=== PATIENT | female | born 2000 | race Hispanic/Latino ===

== ENCOUNTER 2022-04-09 02:05 | Emergency (ER) | payer SELFPAY ==
[2022-04-09] MEDS ORDERED: ONDANSETRON 4 MG/2 ML VIAL ONE (02:35)
[2022-04-09] MEDS ORDERED: NA CHLORIDE 0.9% 1,000 ML ONE (02:35)
[2022-04-09] MEDS ORDERED: LIDOCAINE VISCOUS 2% SOLN 15 ML UDC ONE (02:35)
[2022-04-09] MEDS ORDERED: KETOROLAC 30 MG/ML INJ ONE (02:36)
[2022-04-09] MEDS ORDERED: MAGNES/ALUMIN/SIMET 30ML UCUP ONE (02:37)
[2022-04-09 02:44] LABS: Absolute Lymphocytes (CBC) 4.2 K/uL (0.7-4.9); Hematocrit 41.3 % (36.0-45.0); Lymphocytes % 32.8 % (15.3-44.8); MCV 90.8 fL (80-100); MPV 8.9 fL (7.6-11.3); RBC Red Blood Cell Count 4.55 M/uL (3.86-4.86)
[2022-04-09 02:56] LABS: Urine Blood Trace-intact (Negative); Urine Glucose Negative (Negative); Urine Protein Negative (Negative)
[2022-04-09 03:03] LABS: Urine Mucus Slight /HPF (None Seen); Urine RBC <5 /HPF (None Seen)
[2022-04-09 03:04] LABS: Albumin 4.4 g/dL (3.4-5.0); Bilirubin Total 0.7 mg/dL (0.2-1.0); Potassium 3.4 mmol/L (3.5-5.1); Protein, Total 8.5 g/dL (6.4-8.2); Troponin High Sensitivity 4.6 pg/mL (<58.9)
--- NOTE | 2022-04-09 03:42 | EDPHYS ---
Physician Documentation [facility] Name: Trina Cortez Age: 21 yrs Sex: Female : 2000 Arrival Date: 04/09/2022 Time: 02:09 Bed 15 Private MD: ED Physician Brittney Sims HPI: 04/09 02:20 This 21 yrs old Female presents to ER via Unassigned with complaints of sd2 Breathing Difficulty, Chest Pain, Vomiting, Cough. 02:20 21 yo F presents with CC of CP, SOB and vomiting. Reports symptoms initially started 3 sd2 weeks ago with intermittent vomiting and then progressed to the patient having SOB and chest pain. Reports nonproductive cough started today. States unable to eat or drink anything unless it is very small amount without vomiting. No prior cardiac or pulmonary history. Denies any fevers or recent sick contacts. No diarrhea or urinary symptoms. Pt does report a history of HTN that she has not been seen by a physician for. She did see a PCP on 02/27/22 and was given azithromycin for "vaginal bacterial infection" and doxycycline for her acne as well as being started on control. She stopped taking the doxycycline and control 3-4 days ago due to feeling like they were making her more nauseous. Pt reports she is currently on her menstrual period.. 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 - Social history:: Smoking status: Reported history of juuling and/or vaping. ROS: 02:20 Constitutional: Negative for fever, chills, and weight loss, Eyes: Negative for injury, sd2 pain, redness, and discharge. 02:20 MS/Extremity: Negative for injury and deformity, Skin: Negative for injury, rash, and discoloration, Neuro: Negative for headache, numbness and tingling. 02:20 Cardiovascular: Positive for chest pain, Negative for edema, palpitations. 02:20 Respiratory: Positive for cough, shortness of breath, Negative for wheezing. 02:20 Abdomen/GI: Positive for nausea and vomiting, Negative for abdominal pain, diarrhea. Exam: 02:20 Constitutional: This is a well developed, well nourished patient who is awake, alert, sd2 and in no acute distress. Head/Face: Normocephalic, atraumatic. Eyes: EOMI, normal conjunctiva bilaterally Chest/axilla: Normal chest wall appearance and motion. Nontender with no deformity. Cardiovascular: Regular rate and rhythm with a normal S1 and S2. No gallops, murmurs, or rubs. 2+ distal pulses. Respiratory: Lungs have equal breath sounds bilaterally, clear to auscultation and percussion. No rales, rhonchi or wheezes noted. No increased work of breathing, no retractions or nasal flaring. Abdomen/GI: Soft, non-tender, with normal bowel sounds. No guarding or rebound. No evidence of tenderness throughout. Skin: Warm, dry with normal turgor. Normal color with no rashes, no lesions, and no evidence of cellulitis. MS/ Extremity: Pulses equal, no cyanosis. Neurovascular intact. Full, normal range of motion. Ambulatory without difficulty. Psych: Awake, alert, with orientation to person, place and time. Behavior, mood, and affect are within normal limits. 03:14 ECG was reviewed by the Attending Physician. NSR, rate 84, no STEMI criteria, sinus sd2 arrhythmia present Vital Signs: 02:19 BP 157 / 108; Pulse 94; Resp 18 S; Temp 98.0(O); Pulse Ox 100% on R/A; Weight 80.74 kg as6 (R); Height 5 ft. 2 in. (157.48 cm) (R); Pain 6/10; 03:02 Pain 2/10; ke1 03:02 Pain 2/10; ke1 03:18 BP 110 / 94; Pulse 85; Resp 16; Pulse Ox 99% on R/A; Pain 0/10; ke1 02:19 Body Mass Index 32.56 (80.74 kg, 157.48 cm) as6 MDM: 02:11 Patient medically screened. sd2 02:20 Differential diagnosis: Differential diagnosis includes but is not limited to: ACS, sd2 DVT/PE, pneumothorax, dissection, musculoskeletal, anxiety, anemia, electrolyte abnormality, pneumonia, CHF, COPD among others. Data reviewed: vital signs, nurses notes. 03:37 Data reviewed: lab test result(s), EKG, radiologic studies. Counseling: I had a sd2 detailed discussion with the patient and/or guardian regarding: the historical points, exam findings, and any diagnostic results supporting the discharge/admit diagnosis, lab results, radiology results, the need for outpatient follow up. Medical screen evaluation completed. [facility] emergency medical condition absent. ED course: Labs and imaging reviewed. Labs grossly WNCL. Trop neg. EKG with no ischemic changes. CXR with no acute process. COVID testing positive. Flu neg. Pt feeling much improved after treatment. Tolerating PO. Advised of results. Pt states she tested positive on 03/11 initially. Suspect persistent COVID symptoms. Pt advised of continued supportive care and need for outpatient follow up. No respiratory distress or hypoxia. Pt is comfortable with plan for discharge and verbalizes understanding of discharge plan and strict return precautions.. 04/09 02:20 Order name: CBC with Diff; Complete Time: 03:27 sd04/09 02:20 Order name: CMP; Complete Time: 03:27 sd04/09 02:20 Order name: Lipase; Complete Time: 03:27 sd04/09 02:20 Order name: Troponin High Sensitivity; Complete Time: 03:27 04/09 02:20 Order name: Urine Microscopic Only; Complete Time: 03:27 04/09 02:20 Order name: SARS-COV-2 RT PCR (Document "Date of Onset" if Symptomatic); Complete Time: sd2 03:27 04/09 02:20 Order name: XRAY Chest (1 view) 2 04/09 02:20 Order name: Influenza Screen (a \\T\\ B); Complete Time: 03:27 sd2 04/09 02:56 Order name: Urine Dipstick-Ancillary; Complete Time: 03:27 EDMS 04/09 03:03 Order name: Urine --Ancillary (enter results); Complete Time: 03:30 04/09 02:20 Order name: EKG - Nurse/Tech; Complete Time: 02:45 sd2 04/09 02:20 Order name: Urine Dipstick-Ancillary (obtain specimen); Complete Time: 02:56 sd2 04/09 02:20 Order name: Urine Test (obtain specimen); Complete Time: 02:56 sd2 04/09 03:30 Order name: PO challenge; Complete Time: 03:33 sd2 Administered Medications: 02:35 Drug: Zofran (Ondansetron) 4 mg Route: IVP; Site: left antecubital; ke1 03:02 Follow up: Response: Nausea is decreased ke1 02:35 Drug: Ketorolac 15 mg Route: IVP; Site: left antecubital; ke1 03:02 Follow up: Pain 2/10 Adult; Response: Pain is decreased ke1 02:35 Drug: GI Cocktail without - (Maalox Suspension 30 ml, Lidocaine Liquid 2 % 15 ke1 ml) Route: PO; 03:02 Follow up: Pain 2/10 Adult; Response: Pain is decreased ke1 02:56 Drug: NS 0.9% 1000 ml Route: IV; Rate: 1 bolus; Site: left antecubital; ke1 03:30 Follow up: IV Status: Completed infusion ke1 Disposition Summary: 04/09/22 03:42 Discharge Ordered Location: Home sd2 Problem: an ongoing problem sd2 Symptoms: have improved sd2 Condition: Stable sd2 Diagnosis - Coronavirus infection, unspecified sd2 - Nausea and vomiting sd2 - Dyspnea sd2 Followup: sd2 - With: Private Physician - When: 2 - 3 days - Reason: Recheck today's complaints, Continuance of care, Re-evaluation by your physician Discharge Instructions: - Discharge Summary Sheet sd2 - Nausea and Vomiting, Adult sd2 - 10 Things You Can Do to Manage Your COVID-19 Symptoms at Home - [facility] sd2 Forms: - Medication Reconciliation Form sd2 - Thank You Letter sd2 - Antibiotic Education sd2 - Prescription Opioid Use sd2 Prescriptions: - Ibuprofen 800 mg Oral Tablet - take 1 tablet by ORAL route every 8 hours As needed take with food; 20 tablet; sd2 Refills: 0, Product Selection Permitted - Zofran 4 mg Oral Tablet - take 1 tablet by ORAL route every 6 hours As needed; 15 tablet; Refills: 0, sd2 Product Selection Permitted - Guaifenesin AC 10-100 mg/5 mL Oral Liquid - take 10 milliliters by ORAL route every 4 hours As needed; 240 milliliter; sd2 Refills: 0, Product Selection Permitted Signatures: [facility] Alvaro Flood RN RN as6 Shanon Baig RN RN ke1 Brittney Sims MD MD sd2 Corrections: (The following items were deleted from the chart) 02:24 02:20 21 yo F presents with CC of CP, SOB and vomiting. Reports symptoms initially sd2 started 3 weeks ago with intermittent vomiting and then progressed to the patient having SOB and chest pain. Reports nonproductive cough started today. States unable to eat or drink anything unless it is very small amount without vomiting. No prior cardiac or pulmonary history. Denies any fevers or recent sick contacts. No diarrhea or urinary symptoms.. sd2
--- NOTE | 2022-04-09 03:42 | ER ---
Nurse's Notes [facility] Name: Trina Cortez Age: 21 yrs Sex: Female : 2000 Arrival Date: 04/09/2022 Time: 02:09 Bed 15 Private MD: Diagnosis: Coronavirus infection, unspecified;Nausea and vomiting;Dyspnea Presentation: 04/09 02:19 Chief complaint: Patient states: "I'm having some chest pains and its making it hard to as6 breath. and I started coughing and it's making me nauseous and throw up". Coronavirus screen: At this time, the client does not indicate any symptoms associated with coronavirus-19. Ebola Screen: No symptoms or risks identified at this time. Initial Sepsis Screen: Does the patient meet any 2 criteria? No. Patient's initial sepsis screen is negative. Does the patient have a suspected source of infection? No. Patient's initial sepsis screen is negative. Risk Assessment: Do you want to hurt yourself or someone else? Patient reports no desire to harm self or others. Onset of symptoms was March 19, 2022. 02:19 Method Of Arrival: Ambulatory as6 02:19 Acuity: TUCKER 3 as6 Triage Assessment: 02:57 General: Appears uncomfortable, Behavior is appropriate for age. Pain: Complains of ke1 pain in chest Pain does not radiate. Pain currently is 6 out of 10 on a pain scale. at worst was 10 out of 10 on a pain scale. level that patient reports is acceptable is 4 out of 10 on a pain scale. Quality of pain is described as pressure. Respiratory: Reports shortness of breath Onset: The symptoms/episode began/occurred gradually, the patient has mild shortness of breath. 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 - Social history:: Smoking status: Reported history of juuling and/or vaping. Screenin:56 Abuse screen: Denies threats or abuse. Nutritional screening: No deficits noted. ke1 Tuberculosis screening: No symptoms or risk factors identified. Fall Risk None identified. Assessment: 02:56 Cardiovascular: Rhythm is. Respiratory: Airway is patent Respiratory effort is even, ke1 unlabored, Breath sounds are clear. 03:02 Reassessment: Patient is alert, oriented x 3, equal unlabored respirations, skin ke1 warm/dry/pink. Patient states feeling better. Patient states symptoms have improved. 04:00 Reassessment: No changes from previously documented assessment. ke1 Vital Signs: 02:19 BP 157 / 108; Pulse 94; Resp 18 S; Temp 98.0(O); Pulse Ox 100% on R/A; Weight 80.74 kg as6 (R); Height 5 ft. 2 in. (157.48 cm) (R); Pain 6/10; 03:02 Pain 2/10; ke1 03:02 Pain 2/10; ke1 03:18 BP 110 / 94; Pulse 85; Resp 16; Pulse Ox 99% on R/A; Pain 0/10; ke1 02:19 Body Mass Index 32.56 (80.74 kg, 157.48 cm) as6 ED Course: 02:09 Patient arrived in ED. ja2 02:10 Brittney Sims MD is Attending Physician. sd2 02:21 Shanon Baig, IDALMIS is Primary Nurse. ke1 02:21 Triage completed. as6 02:21 Arm band placed on. as6 02:40 Inserted saline lock: 20 gauge in left antecubital area, using aseptic technique. Blood ds4 collected. 02:42 Influenza Screen (a \\T\\ B) Sent. ke1 02:42 SARS-COV-2 RT PCR (Document "Date of Onset" if Symptomatic) Sent. ke1 02:43 XRAY Chest (1 view) In Process Unspecified. EDMS 02:58 Placed in gown. Bed in low position. ke1 04:01 No provider procedures requiring assistance completed. IV discontinued. ke1 Administered Medications: 02:35 Drug: Zofran (Ondansetron) 4 mg Route: IVP; Site: left antecubital; ke1 03:02 Follow up: Response: Nausea is decreased ke1 02:35 Drug: Ketorolac 15 mg Route: IVP; Site: left antecubital; ke1 03:02 Follow up: Pain 2/10 Adult; Response: Pain is decreased ke1 02:35 Drug: GI Cocktail without - (Maalox Suspension 30 ml, Lidocaine Liquid 2 % 15 ke1 ml) Route: PO; 03:02 Follow up: Pain 2/10 Adult; Response: Pain is decreased ke1 02:56 Drug: NS 0.9% 1000 ml Route: IV; Rate: 1 bolus; Site: left antecubital; ke1 03:30 Follow up: IV Status: Completed infusion ke1 Medication: 04:01 VIS not applicable for this client. ke1 Outcome: 03:42 Discharge ordered by . sd2 04:01 Discharged to home ambulatory. ke1 04:01 Condition: good 04:01 Discharge instructions given to patient. 04:02 Patient left the ED. ke1 Signatures: Dispatcher [employer] EDForest Scott ds4 Linda Chamorro2 Alvaro Garcia RN RN as6 Shanon Baig RN RN ke1 Brittney Sims MD MD sd2
--- NOTE | 2022-04-09 16:39 | RAD REPORT ---
EXAM DESCRIPTION: RAD - Chest Single View - 04/09/2022 2:41 am CLINICAL HISTORY: CHEST PAIN COMPARISON: None. FINDINGS: Single frontal radiograph view of the chest. Cardiomediastinal silhouette: Normal size and contour. Lungs: No consolidation, pneumothorax, or pleural effusion. Bones: No acute osseous abnormality. Upper abdomen: No abnormality identified. IMPRESSION: 1. No acute pulmonary process identified. Electronically signed by: Mario Babb 04/09/2022 2:50 AM CDT Due to temporary technical issues with the PACS/Fluency reporting system, reports are being signed by the in house radiologists without review as a courtesy to insure prompt reporting. The interpreting radiologist is fully responsible for the content of the report.
--- NOTE | 2022-04-10 17:29 | EKG ---
Test Date: 2022-04-09 Test Time: 02:38:55 Learning And Development Analyst: ANKIT MEASUREMENT RESULTS: Intervals: Rate: 84 DE: 126 QRSD: 90 QT: 362 QTc: 427 [place]: P: 27 DE: 126 QRS: 72 T: 15 INTERPRETIVE STATEMENTS: Normal sinus rhythm with sinus arrhythmia Normal ECG No previous ECG available for comparison Electronically Signed On 04-10-22 17:27:05 CDT by Zane Gonzalez
[2022-04-11 06:48] VITALS: TEMP 98
[2022-04-11 07:04] VITALS: BP 110/94; O2SAT 99
== END 2022-04-09 04:02 | disposition home or self-care (01) ==
LOC: ER 02:05
DX: U07.1 COVID-19 (principal); R06.00 Dyspnea, unspecified
CPT/HCPCS: 36415; 71045; 80053; 81003; 81015; 81025; 83690; 84484; 85025; 87804; 93005; 96361; 96374; 96375; 99284; J2405; J7030; U0003